=== PATIENT | female | born 1960 | race Caucasian/White ===

== ENCOUNTER → 2020-11-01 | Day surgery (SDC) | payer MEDICARE, OTHER ==
[~2020-11-01] MED LIST: ACETAMINOPHEN325 MG PO; AZO CRANBERRY1 EACH PO; BACLOFEN 10MG T10 MG PO; CALCIUM MAGNES1 EAC1 PO; ECHINACEA400 MG PO; FLONASE ALLER15.8 ML; FLUOXETINE HCL40 MG PO; IBUPROFEN200 M1 PO; LAMICTAL25 MG PO; MELATONIN10 M2 PO; NAPROXEN500 MG PO; PRAVACHOL40 MG PO; PRINIVIL10 MG PO; PROPRANOLOL HCL60 MG PO; VENTOLIN HFA IN18 GM INH; VITAMIN D325 MC2 PO; ZYRTEC10 MG PO
== END | disposition home or self-care (01) ==
LOC: FAS 06:45
DX: D12.2 Benign neoplasm of ascending colon (principal); K21.00 Gastro-esophageal reflux disease with esophagitis, without bleeding; K29.80 Duodenitis without bleeding; K44.9 Diaphragmatic hernia without obstruction or gangrene; K62.5 Hemorrhage of anus and rectum; K29.70 Gastritis, unspecified, without bleeding; F17.210 Nicotine dependence, cigarettes, uncomplicated; I10 Essential (primary) hypertension; F31.9 Bipolar disorder, unspecified; E04.9 Nontoxic goiter, unspecified; Z90.49 Acquired absence of other specified parts of digestive tract; Z88.5 Allergy status to narcotic agent; Z88.2 Allergy status to sulfonamides; Z88.8 Allergy status to other drugs, medicaments and biological substances; Z79.899 Other long term (current) drug therapy; Z98.890 Other specified postprocedural states; Z82.49 Family history of ischemic heart disease and other diseases of the circulatory system; Z86.16 Personal history of COVID-19; Z83.79 Family history of other diseases of the digestive system
CPT/HCPCS: 88305; J2250; J2405; J2704; J7120